=== PATIENT | male | born 2000 | race African-American/Black ===

== ENCOUNTER 2021-03-28 20:20 | Emergency (ER) | payer SELFPAY ==
[2021-03-28] MEDS ORDERED: Ibuprofen 800 MG TAB ONE (20:30)
== END 2021-03-28 21:17 | disposition home or self-care (01) ==
LOC: BURERS 20:20
DX: S93.402A Sprain of unspecified ligament of left ankle, initial encounter (principal); W23.1XXA Caught, crushed, jammed, or pinched between stationary objects, initial encounter; Y99.0 Civilian activity done for income or pay

== ENCOUNTER 2021-09-17 05:37 | Emergency (ER) | payer SELFPAY ==
[2021-09-17] MEDS ORDERED: predniSONE 20 MG TAB ONE ×2 (05:53)
[2021-09-17] MEDS ORDERED: diphenhydrAMINE 25 MG CAP ONE (05:53)
[2021-09-17] MEDS ORDERED: Famotidine 20 MG TAB ONE (05:53)
== END 2021-09-17 06:05 | disposition home or self-care (01) ==
LOC: BURERS 05:37
DX: L50.0 Allergic urticaria (principal)
CPT/HCPCS: 99282; J7512

== ENCOUNTER 2022-05-07 14:18 | Emergency (ER) | payer OTHER ==
[2022-05-07] MEDS ORDERED: Ibuprofen 800 MG TAB ONE (14:41)
[2022-05-07] MEDS ORDERED: Ondansetron ODT 4 MG TAB ONE (15:10)
== END 2022-05-07 15:15 | disposition home or self-care (01) ==
LOC: BURERS 14:18
DX: J11.1 Influenza due to unidentified influenza virus with other respiratory manifestations (principal)
CPT/HCPCS: 99283; Q0162